=== PATIENT | female | born 1985 | race Caucasian/White ===

== ENCOUNTER 2021-08-27 15:05 | Emergency (ER) | payer OTHER ==
[~2021-08-27] VITALS: Ht 165.1 cm; Wt 81.6 kg
--- NOTE | 2021-08-27 15:05 | NUR ---
PT BIBRA FROM WORK C/O GEN ITCHINESS AFTER TAKING AZO OTC FOR UTI 30MINS [employer]. PT IS AAOX4, NOT IN RESPIRATORY DISTRESS, V/S STABLE, KEPT RESTED AND COMFORTABLE. WILL CONTINUE TO MONITOR.
--- NOTE | 2021-08-27 15:37 | NUR ---
SEEN AND EXAMINED BY .
--- NOTE | 2021-08-27 15:45 | NUR ---
URINE SPECIMEN COLLECTED AND SENT TO LAB.
[2021-08-27] MEDS ORDERED: diphenhydrAMINE HCL 50 MG/ML VIAL IV ONE (16:00)
[2021-08-27] MEDS ORDERED: FAMOTIDINE/PF INJ 20 MG/2 ML VIAL IV ONE ×2 (16:00→16:08)
[2021-08-27 16:01] LABS: BASOPHILS % (AUTO) 0.4 % (0.0-2.0); EOSINOPHILS % (AUTO) 1.5 % (0.0-6.0); HEMATOCRIT 43 % (33-45); HEMOGLOBIN 14.7 g/dL (11.5-14.8); LYMPHOCYTES # (AUTO) 3.1 K/uL (0.8-4.8); LYMPHOCYTES % (AUTO) 29.6 % (20.0-44.0); MEAN CORPUSCULAR HGB CONC 34 g/dl (31.0-36.0); MEAN CORPUSCULAR VOLUME 87 fL (82-100); MONOCYTES # (AUTO) 0.7 K/uL (0.1-1.30); MONOCYTES % (AUTO) 6.7 % (2.0-12.0); NEUTROPHILS # (AUTO) 6.6 K/uL (1.8-8.9); NEUTROPHILS % (AUTO) 61.8 % (43.0-81.0); PLATELET COUNT (AUTO) 424 K/uL (150-450); WHITE BLOOD COUNT (AUTO) 10.6 K/uL (4.3-11.0)
[2021-08-27 16:03] LABS: BILIRUBIN,URINE NEGATIVE (NEGATIVE); COLOR,URINE DARK YELLOW (YELLOW); LEUKOCYTE ESTERASE ,URINE MODERATE (NEGATIVE); NITRITE, URINE POSITIVE (NEGATIVE); PROTEIN,URINE NEGATIVE (NEGATIVE); UGLUCOSE NEGATIVE (NEGATIVE)
[2021-08-27 16:08] LABS: BACTERIA,URINE 1+ /HPF (None Seen); RBC,URINE 21-50 /HPF (0-2); WBC,URINE 21-50 /HPF (0-3)
[2021-08-27] MEDS ORDERED: diphenhydrAMINE HCL 50 MG/ML VIAL ONE (16:08)
[2021-08-27 16:25] LABS: CALCIUM, SERUM 8.9 mg/dL (8.5-10.1); CREATININE 1.2 mg/dL (0.6-1.3); POTASSIUM 3.6 mmol/L (3.5-5.1)
[2021-08-27] MEDS ORDERED: CEFTRIAXONE 1GM BAG (ER ONLY) 50 ML IV ONE (16:29)
[2021-08-27 16:30] LABS: ALBUMIN 3.9 g/dL (3.4-5.0); BILIRUBIN,DIRECT 0.1 mg/dL (0.0-0.2); BILIRUBIN,TOTAL 0.4 mg/dL (0.2-1.0); TOTAL PROTEIN, SERUM 8.3 g/dL (6.4-8.2)
[2021-08-27] MEDS ORDERED: CEFTRIAXONE 1 G in IV D5W 50 ML IV ONE (16:30)
[2021-08-27] MEDS ORDERED: DIPH50CA37 MC (16:51)
[2021-08-27] MEDS ORDERED: CEPH500C2 PO (16:51)
[2021-08-27] MEDS ORDERED: FAMO-131 PO (16:52)
--- NOTE | 2021-08-27 17:14 | NUR ---
IV removed. Catheter intact and site benign. Pressure and 4x4 applied to site. No bleeding noted.Patient discharged to home in stable condition. Written and verbal after care instructions given. Patient verbalizes understanding of instruction.
[2021-08-27 17:15] VITALS: BP 132/73
== END 2021-08-27 17:15 | disposition home or self-care (01) ==
LOC: ER 15:10
DX: N39.0 Urinary tract infection, site not specified (principal); T39.8X5A Adverse effect of other nonopioid analgesics and antipyretics, not elsewhere classified, initial encounter; F41.9 Anxiety disorder, unspecified; Y92.89 Other specified places as the place of occurrence of the external cause
CPT/HCPCS: 36415; 80048; 80076; 81001; 83690; 84702; 84703; 85025; 87086; 96374; 96375; 99284; J0696; J1200; J3490; J7060